=== PATIENT | female | born 1965 | race Caucasian/White ===

== ENCOUNTER 2019-03-30 12:58 | Emergency (ER) | payer OTHER ==
[2019-03-30 13:24] LABS: BASOPHILS # (AUTO) 0.1 10^3/uL (0.0-0.1); EOSINOPHILS # (AUTO) 0.1 10^3/uL (0.0-0.7); HGB - HEMOGLOBIN 14.3 g/dL (12.0-16.0); LYMPHOCYTES # (AUTO) 2.2 10^3/uL (1.5-3.5); LYMPHOCYTES % (AUTO) 21.8 %; MEAN CORPUSCULAR HEMOGLOBIN 29.5 pg (27.0-31.0); MEAN CORPUSCULAR HGB CONC 33.5 g/dL (32.0-36.0); MEAN PLATELET VOLUME 8.2 fL (7.9-10.8); MONOCYTES # (AUTO) 0.6 10^3/uL (0.0-1.0); NEUTROPHILS # (AUTO) 7.1 10^3/uL (1.5-6.6); NEUTROPHILS % (AUTO) 70.2 %; PLT - PLATELET COUNT 211 10^3/uL (130-450); RED BLOOD COUNT 4.84 10^6/uL (4.20-5.40); WHITE BLOOD COUNT 10.1 x10^3/uL (4.8-10.8)
[2019-03-30 13:40] LABS: ALBUMIN 4.2 g/dL (3.2-5.5); ALBUMIN/GLOBULIN RATIO 1.4 (1.0-2.2); BILIRUBIN,TOTAL 0.7 mg/dL (0.2-1.0); CALCIUM 9.1 mg/dL (8.5-10.3); CREATININE 1.1 mg/dL (0.4-1.0); TOTAL PROTEIN 7.3 g/dL (6.7-8.2)
[2019-03-30] MEDS ORDERED: ASPIRIN CHEW 81 MG TABLET PO STA (13:45)
--- NOTE | 2019-03-30 13:47 | ED Physician Documentation ---
PD HPI CHEST PAIN - Stated complaint Stated Complaint: CHEST PAIN - Chief complaint Chief Complaint: Cardiac - History obtained from History obtained from: Patient - History of Present Illness Timing - onset: How many days ago (2) Timing - onset during: Rest Timing - duration: Hours (last 3-4 hours at a time) Pain level max: 4 Pain level now: 3 Quality: Pressure, Tightness Location: Substernal Radiation: No: Jaw, Neck, Back, Abdominal, Left upper extremity, Right upper extremity Improved by: Nothing Worsened by: Other (nothing) Associated symptoms: Nausea. No: Shortness of air, Diaphoresis, Vomiting, Feeling faint / dizzy, General Weakness, Palpitations, Cough Recently seen: Not recently seen - Additional information Additional information: Patient is also being seen for chronic chin pain, they think this is due to a migraine per her neurologist. She states that she thinks that the chest pain may have radiated to her neck movements but she is unsure if this is due to the chronic chin pain or not. Review of Systems Ten Systems: 10 systems reviewed and negative Constitutional: denies: Fever, Chills Ears: denies: Ear pain Nose: denies: Rhinorrhea / runny nose, Congestion Respiratory: denies: Dyspnea, Cough, Wheezing GI: denies: Abdominal Pain, Vomiting, Diarrhea : denies: Dysuria Skin: denies: Rash Musculoskeletal: denies: Neck pain, Back pain Neurologic: denies: Focal weakness, Numbness PD PAST MEDICAL HISTORY - Past Medical History Past Medical History: Yes Cardiovascular: Hypertension - Present Medications Home Medications: Ambulatory Orders Medication Instructions Recorded Confirmed Lisinopril 20 mg PO DAILY 03/30/19 03/30/19 No Known Home Medications 03/30/19 03/30/19 - Allergies Allergies/Adverse Reactions: Allergies Allergy/AdvReac Type Severity Reaction Status Date / Time No Known Drug Allergies Allergy Verified 03/30/19 13:08 - Living Situation Living Situation: reports: With family Living Arrangement: reports: At home - Social History Does the pt smoke?: No Does the pt drink ETOH?: Yes Does the pt have substance abuse?: No - Family History Family history: reports: Non contributory PD ED PE NORMAL - Vitals Vital signs reviewed: Yes - General General: Alert and oriented X 3, No acute distress, Well developed/nourished - HEENT HEENT: PERRL, Moist mucous membranes - Neck Neck: Supple, no meningeal sign - Cardiac Cardiac: RRR, No murmur, Strong equal pulses - Respiratory Respiratory: No respiratory distress, Clear bilaterally - Abdomen Abdomen: Soft, Non tender, Non distended - Derm Derm: Warm and dry, No rash - Extremities Extremities: No edema, No calf tenderness / cord - Neuro Neuro: Alert and oriented X 3 - Psych Psych: Normal mood, Normal affect Results - Vitals Vitals: Vital Signs - 24 hr 03/30/19 03/30/19 03/30/19 13:06 13:29 14:00 Temperature 36.1 C L Heart Rate 70 59 L 55 L Respiratory 16 16 16 Rate Blood Pressure 168/133 H 177/102 H 172/101 H O2 Saturation 98 100 100 03/30/19 14:19 Temperature Heart Rate 57 L Respiratory 16 Rate Blood Pressure 149/93 H O2 Saturation 100 Oxygen O2 Source Room air - EKG (time done) 1308 Rate: Rate (enter#) (64) Rhythm: NSR, Other (PVC) Egan: Normal Intervals: Normal MI QRS: Normal Ischemia: Normal ST segments - Labs Labs: Laboratory Tests 03/30/19 03/30/19 03/30/19 13:15 13:15 13:15 WBC 10.1 RBC 4.84 Hgb 14.3 Hct 42.6 MCV 88.0 MCH 29.5 MCHC 33.5 RDW 14.0 Plt Count 211 MPV 8.2 Neut # (Auto) 7.1 H Lymph # (Auto) 2.2 Sierra # (Auto) 0.6 Eos # (Auto) 0.1 Baso # (Auto) 0.1 Absolute Nucleated RBC 0.00 Nucleated RBC % 0.0 Sodium 138 Potassium 4.1 Chloride 102 Carbon Dioxide 25 Anion Gap 11.0 BUN 19 Creatinine 1.1 H Estimated GFR (MDRD) 52 L Glucose 105 H Calcium 9.1 Total Bilirubin 0.7 AST 17 ALT 18 Alkaline Phosphatase 59 Troponin I < 0.04 Total Protein 7.3 Albumin 4.2 Globulin 3.1 Albumin/Globulin Ratio 1.4 Lipase 36 - Rads (name of study) cxr Radiology: Prelim report reviewed, EMP read contemporaneously, See rad report (No acute abnormality) PD MEDICAL DECISION MAKING - ED course Complexity details: reviewed results, re-evaluated patient, considered differential, d/w patient, d/w family ED course: Patient with over 24 hours of chest pain. Negative troponin. No acute findings on EKG. Negative x-ray. Pain-free here. Recommend that she get an urgent stress test. Will start on aspirin daily. Patient is well-appearing, nontoxic. Afebrile. No evidence of pulmonary embolus, pneumothorax. No evidence of aortic dissection. Patient counseled regarding signs and symptoms for which I believe and urgent re-evaluation would be necessary. Patient with good understanding of and agreement to plan and is comfortable going home at this time This document was made in part using voice recognition software. While efforts are made to proofread this document, sound alike and grammatical errors may occur. Departure - Departure Disposition: 01 Home, Self Care Clinical Impression: Chest pain Qualifiers: Chest pain type: unspecified Qualified Code(s): R07.9 - Chest pain, unspecified Condition: Good Instructions: ED Chest Pain Atypical Unkn Cause Follow-Up: ANNITA Carias [Provider Group] - Within 3 Days Comments: Follow-up with your doctor within 3 days for a cardiac stress test. Return if you worsen. Start on a baby aspirin daily, 81 mg by mouth. Your testing is normal today, but you need a stress test to evaluate your risk of cardiac disease going forward. Discharge Date/Time: 03/30/19 14:27
--- NOTE | 2019-03-30 13:51 | XRAY Report ---
Reason: Chest Pain Procedure Date: 03/30/2019 Accession Number: [id number] / [id number] Procedure: XR - Chest 1 View X-Ray CPT Code: 90503 FULL RESULT: EXAM: CHEST RADIOGRAPHY EXAM DATE: 03/30/2019 01:45 PM. CLINICAL HISTORY: Midline chest pain. COMPARISON: None. TECHNIQUE: 1 view. FINDINGS: Lungs/Pleura: No focal opacities evident. No pleural effusion. No pneumothorax. Mediastinum: Within exam limitations, the cardiomediastinal contour is normal. Other: None. IMPRESSION: No focal consolidation. RADIA
[2019-03-30 14:19] VITALS: BP 149/93
== END 2019-03-30 14:27 | disposition home or self-care (01) ==
LOC: ED 12:58
DX: R07.9 Chest pain, unspecified (principal); I10 Essential (primary) hypertension; G89.29 Other chronic pain
CPT/HCPCS: 36415; 71045; 80053; 83690; 84484; 85025; 93005; 99284; A9270

== ENCOUNTER 2019-04-13 15:20 | Outpatient (CLI) | payer OTHER ==
--- NOTE | 2019-04-13 17:51 | CARDIAC PROCEDURE NOTE ---
DATE OF SERVICE: 04/13/2019 Physician: Nichol David MD, [facility] INDICATIONS: Chest pain. CARDIAC RISK FACTORS: Postmenopausal status, history of hypertension. PROCEDURE: After signing informed consent, patient underwent a Johnathon-protocol treadmill stress test. No imaging was ordered with this test. The patient reported constant left and right lateral rib cage area chest pressure, as well as jaw pain. This is present daily and is currently present even before exercise. RESTING HEART RATE: 63. Peak heart rate: 156 (93% predicted maximum heart rate for age). RESTING BLOOD PRESSURE: 102/72. Peak blood pressure: 170/70. Patient exercised for 7 minutes, 21 seconds on a Johnathon-protocol treadmill stress test. She achieved a peak heart rate of 156 (93% PMHR) and 9.1 METs. She had mild shortness of breath and oxygen saturation was 98% on room air at peak. Patient developed 3 episodes of her typical central chest pressure, which only lasted 15 seconds each time. They occurred in stage 2 and stage 3. There was no discomfort at the very peak of exercise. RESTING EKG: Normal sinus rhythm, left atrial enlargement, vertical axis. EKG AT PEAK: No new ST segment or T-wave changes to suggest ischemia. SUMMARY 1. Baseline EKG has borderline abnormalities. 2. No ischemic changes by EKG criteria, on this exercise stress test at an adequate level of stress. 3. She did develop her chest pain, but it was atypical in that it came and went with exercise and was very brief, therefore this did not truly reproduced her symptoms. 4. No imaging study was ordered with this test. cc: Jagdish Pereira MD, TD: 04/13/2019 17:15 [facility]
== END 2019-04-13 15:21 | disposition home or self-care (01) ==
LOC: DI 15:20
PROVIDERS: ATTEND General Practice
DX: I10 Essential (primary) hypertension (principal); R07.89 Other chest pain; R68.84 Jaw pain
CPT/HCPCS: 93017